=== PATIENT | female | born 1980 | race Two or more races ===

== ENCOUNTER 2024-01-02 12:20 | Emergency (ER) | payer MEDICAID, OTHER ==
[~2024-01-02] VITALS: Ht 165.1 cm; Wt 91.0 kg
[2024-01-02 13:18] VITALS: BP 101/62; PULSE 82; RESP 17; TEMP 97.8; O2SAT 98
[2024-01-02] MEDS ORDERED: IBUP-1455 PO (13:44)
[2024-01-02] MEDS ORDERED: CYCL-837 PO (13:44)
[2024-01-02] MEDS: methylPREDNISolone SOD SUCC 125 MG/2 ML VL IM ONE (13:54)
[2024-01-02] MEDS: KETOROLAC TROMETH 30 MG/ML 1ML VIAL IM ONE (13:57)
== END 2024-01-02 14:03 | disposition home or self-care (01) ==
LOC: ER 12:20
DX: M54.16 Radiculopathy, lumbar region (principal)
CPT/HCPCS: 96372; 99284; J1885; J2919